=== PATIENT | male | born 1975 | race Hispanic/Latino ===

== ENCOUNTER → 2021-03-09 | Outpatient (CLI) | payer OTHER | END | disposition home or self-care (01) | LOC: RAH 10:21 | PROVIDERS: ATTEND Internal Medicine Gastroenterology | DX: I69.991 Dysphagia following unspecified cerebrovascular disease (principal); R13.12 Dysphagia, oropharyngeal phase; R63.4 Abnormal weight loss; Z93.1 Gastrostomy status; R13.10 Dysphagia, unspecified | CPT/HCPCS: 74230; 92611 ==

== ENCOUNTER 2023-06-29 05:55 | Day surgery (SDC) | payer MEDICARE ==
[2023-06-28 14:36] VITALS: BP 103/55; PULSE 58; RESP 17
[2023-06-29] VITALS (9 sets, daily range): BP systolic 86–123; BP diastolic 40–71; PULSE 42–54; RESP 12–15
[~2023-06-29] VITALS: Ht 177.8 cm; Wt 71.8 kg
[~2023-06-29 05:55] MED LIST: ATOR40TA71 PO; CHOL500050 PEG; CLOP75TA32 PEG; FE F1CAP33 PEG; METF-444 PEG; MIDO5TAB4 PEG; NUT.237L52 PO; SILD20TA14 PEG
[2023-06-29] MEDS ORDERED: 0.9%NACL 1000ML 1,000 ML IV ONE (06:04)
[2023-06-29] MEDS ORDERED: PROPOFOL 10 MG/ML 20ML VIAL IV ONE (09:26)
[2023-06-29] MEDS ORDERED: LIDOCAINE PF 100MG/5ML (2%) SYRINGE 5ML ONE (09:26)
== END 2023-06-29 11:25 | disposition home or self-care (01) ==
LOC: ENDO 05:55 → DAH 05:55 → ENDO 11:25
PROVIDERS: ATTEND Internal Medicine Gastroenterology
DX: D50.9 Iron deficiency anemia, unspecified (principal); K63.5 Polyp of colon; K63.89 Other specified diseases of intestine; R13.12 Dysphagia, oropharyngeal phase; N28.9 Disorder of kidney and ureter, unspecified; I10 Essential (primary) hypertension; E11.9 Type 2 diabetes mellitus without complications; E78.00 Pure hypercholesterolemia, unspecified; Z93.1 Gastrostomy status; Z79.899 Other long term (current) drug therapy; Z79.01 Long term (current) use of anticoagulants; Z86.73 Personal history of transient ischemic attack (TIA), and cerebral infarction without residual deficits; Z80.0 Family history of malignant neoplasm of digestive organs; Z90.49 Acquired absence of other specified parts of digestive tract; Z86.010 Personal history of colon polyps
CPT/HCPCS: 82948 ×3; 45380; J7030 ×2; J2001; J2704; A4620; A4215 ×2; A4223; A7002; A4222; A4221; A4663; A4216; A4606; J3490